=== PATIENT | female | born 2000 | race Caucasian/White ===

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

== ENCOUNTER 2019-03-26 12:06 | Emergency (ER) | payer OTHER ==
[~2019-03-26] VITALS: Ht 152.4 cm; Wt 67.6 kg
[2019-03-26 12:27] VITALS: BP 128/96; Ht 152.4 cm; Wt 67.6 kg
== END 2019-03-26 13:42 | disposition home or self-care (01) ==
LOC: ED 12:06
DX: J02.9 Acute pharyngitis, unspecified (principal)

== ENCOUNTER 2019-05-01 12:20 | Emergency (ER) | payer OTHER ==
[~2019-05-01] VITALS: Ht 152.4 cm; Wt 67.1 kg
[2019-05-01 12:33] VITALS: Ht 152.4 cm; Wt 67.1 kg
[2019-05-01 13:56] VITALS: BP 135/70
== END 2019-05-01 14:15 | disposition home or self-care (01) ==
LOC: ED 12:20
DX: S61.411A Laceration without foreign body of right hand, initial encounter (principal); F41.8 Other specified anxiety disorders; W54.0XXA Bitten by dog, initial encounter; Y93.89 Activity, other specified; Y92.89 Other specified places as the place of occurrence of the external cause; Y99.8 Other external cause status
CPT/HCPCS: 90715; A4570; J2001

== ENCOUNTER 2019-10-29 21:57 | Emergency (ER) | payer OTHER ==
[~2019-10-29] VITALS: Ht 152.4 cm; Wt 68.5 kg
[2019-10-29 22:04] VITALS: Ht 152.4 cm; Wt 68.5 kg
[2019-10-29 22:53] LABS: BASOPHIL % 1.5 % (0-2); CALCIUM 8.9 mg/dL (8.5-10.1); CARBON DIOXIDE 27.3 mmol/L (21-32); CHLORIDE SERUM 104 mmol/L (98-107); CREATININE SERUM 0.7 mg/dL (0.6-1.0); GFR1 > 60 mL/min; GLUCOSE SERUM 91 mg/dL (74-106); POTASSIUM SERUM 3.9 mmol/L (3.5-5.1); SODIUM SERUM 140 mmol/L (136-145)
[2019-10-29 22:54] LABS: PLATELET COUNT 416 x10^3mcL (130-400)
[2019-10-29 22:57] LABS: ALBUMIN 3.9 g/dL (3.4-5.0); ALKALINE PHOSPHATASE 76 U/L (46-116); ALT/SGPT 25 U/L (14-59); AST/SGOT 9 U/L (15-37); BILIRUBIN TOTAL 0.37 mg/dL (0.20-1.00); LIPASE 91 IU/L (73-393); TOTAL PROTEIN, SERUM 7.9 g/dL (6.4-8.2)
[2019-10-30 00:20] VITALS: BP 116/76
== END 2019-10-30 00:20 | disposition home or self-care (01) ==
LOC: ED 21:57
PROVIDERS: Emergency Medicine
DX: K29.70 Gastritis, unspecified, without bleeding (principal); F41.9 Anxiety disorder, unspecified; F32.9 Major depressive disorder, single episode, unspecified
CPT/HCPCS: 36415; Q0092

== ENCOUNTER 2019-11-01 09:46 | Emergency (ER) | payer OTHER ==
[~2019-11-01] VITALS: Ht 152.4 cm; Wt 69.4 kg
[2019-11-01 09:49] VITALS: Ht 152.4 cm; Wt 69.4 kg
[2019-11-01 11:19] LABS: BASOPHIL % 0.3 % (0-2); PLATELET COUNT 374 x10^3mcL (130-400); RED CELL DISTRIBUTION WIDTH 12.9 % (11.5-14.5)
[2019-11-01 11:23] LABS: CALCIUM 9.2 mg/dL (8.5-10.1); CARBON DIOXIDE 27.1 mmol/L (21-32); CHLORIDE SERUM 103 mmol/L (98-107); CREATININE SERUM 0.8 mg/dL (0.6-1.0); GFR1 > 60 mL/min; GLUCOSE SERUM 94 mg/dL (74-106); POTASSIUM SERUM 3.9 mmol/L (3.5-5.1); SODIUM SERUM 139 mmol/L (136-145)
[2019-11-01 11:27] LABS: ALBUMIN 4.2 g/dL (3.4-5.0); ALKALINE PHOSPHATASE 73 U/L (46-116); ALT/SGPT 22 U/L (14-59); AST/SGOT 14 U/L (15-37); BILIRUBIN TOTAL 0.4 mg/dL (0.20-1.00); LIPASE 111 IU/L (73-393)
[2019-11-01 11:29] LABS: TOTAL PROTEIN, SERUM 8.5 g/dL (6.4-8.2)
[2019-11-01 12:14] LABS: UA SPECIFIC GRAVITY >=1.030 (1.005-1.035); microscopic required? YES; urine erythrocyte 2+ (NEGATIVE)
[2019-11-01 12:28] LABS: AMPHETAMINE QUAL UR NONE DETECTED (See below)
[2019-11-01 14:07] VITALS: BP 121/72
== END 2019-11-01 14:07 | disposition home or self-care (01) ==
LOC: ED 09:46
PROVIDERS: Emergency Medicine
DX: R10.33 Periumbilical pain (principal); K58.0 Irritable bowel syndrome with diarrhea; K59.00 Constipation, unspecified
CPT/HCPCS: 36415

== ENCOUNTER 2020-07-22 16:26 | Emergency (ER) | payer OTHER ==
[~2020-07-22] VITALS: Ht 152.4 cm; Wt 64.4 kg
[2020-07-22 16:34] VITALS: Ht 152.4 cm; Wt 64.4 kg
[2020-07-22 18:43] VITALS: BP 117/75
== END 2020-07-22 19:43 | disposition home or self-care (01) ==
LOC: ED 16:26
DX: K59.00 Constipation, unspecified (principal); N39.0 Urinary tract infection, site not specified; R07.89 Other chest pain
CPT/HCPCS: J1885; Q0092

== ENCOUNTER 2020-12-12 12:30 | Emergency (ER) | payer OTHER ==
[~2020-12-12] VITALS: Ht 152.4 cm; Wt 63.5 kg
[2020-12-12 12:48] VITALS: Ht 152.4 cm; Wt 63.5 kg
[2020-12-12 14:15] VITALS: BP 121/87
== END 2020-12-12 15:18 | disposition home or self-care (01) ==
LOC: ED 12:30
DX: F41.9 Anxiety disorder, unspecified (principal); R07.89 Other chest pain; R42 Dizziness and giddiness